=== PATIENT | female | born 1960 | race Caucasian/White ===

== ENCOUNTER → 2016-11-17 | Outpatient (CLI) | payer MEDICAID ==
--- NOTE | 2016-11-17 12:10 | MA ---
Screening Digital Mammogram With iCAD Analysis Clinical Indications: Routine screening. Patient has had a benign right breast stereotactic biopsy. Technique: Standard cephalocaudal and mediolateral oblique projections were obtained. This examinatio n was processed by the iCAD computer aided detection system. Comparison: February 2014, May 2012, October 2010, November 2009, May 2009, April 2009. Breast density: Type B; Scattered fibroglandular densities. Findings: CAD was reviewed. There is a possible developing nodular asymmetry noted in the inferior le ft breast on the oblique view. This may correlate to an asymmetry in the outer left breast on the aircraft electronics technical officer niocaudal view. No suspicious microcalcifications are identified. The right breast is stable in appea petey. Impression: Possible developing left breast asymmetry requires further evaluation, BI-RADS 0. Recommendation: Spot compression assessment of the left breast with ultrasound suggested if the abnor mality persists on diagnostic evaluation. [facility] will send a result letter to the patient.
== END ==
LOC: CIMAGING 08:40
DX: Z12.31 Encounter for screening mammogram for malignant neoplasm of breast (principal)
CPT/HCPCS: G0202

== ENCOUNTER → 2016-11-29 | Outpatient (CLI) | payer MEDICAID | LOC: CIMAGING 12:36 | DX: N60.02 Solitary cyst of left breast (principal) | CPT/HCPCS: 76641-PO; G0206 ==

== ENCOUNTER → 2017-12-17 | Outpatient (CLI) | payer MEDICAID | LOC: CIMAGING 12:08 | PROVIDERS: ATTEND Family Medicine | DX: Z12.31 Encounter for screening mammogram for malignant neoplasm of breast (principal) ==

== ENCOUNTER → 2019-01-01 | Outpatient (CLI) | payer MEDICAID | LOC: CIMAGING 07:15 | PROVIDERS: ATTEND Family Medicine | DX: Z12.31 Encounter for screening mammogram for malignant neoplasm of breast (principal) ==